=== PATIENT | male | born 1990 | race Caucasian/White ===

== ENCOUNTER 2017-11-04 17:35 | Emergency (ER) | payer SELFPAY ==
--- NOTE | 2017-11-04 17:48 | EDM.PDOC ---
ED HPI GENERAL MEDICAL PROBLEM - General Chief Complaint: ENT Problem Stated Complaint: SORE THROAT Time Seen by Provider: 11/04/17 17:36 Source of Information: Reports: Patient History Limitations: Reports: No Limitations - History of Present Illness INITIAL COMMENTS - FREE TEXT/NARRATIVE: History of present illness: []Patient's had 3 days of a fever and sore throat that is severe and feels like strep. States he has pain with swallowing but is able to tolerate fluids. Being short of breath or having a cough. Patient has had strep Review of systems: As per history of present illness and below otherwise all systems reviewed and negative. Past medical history: As per history of present illness and as reviewed below otherwise noncontributory. Surgical history: As per history of present illness and as reviewed below otherwise noncontributory. Social history: No reported history of drug or alcohol abuse. Family history: As per history of present illness and as reviewed below otherwise noncontributory. Physical exam: General: Well developed, well nourished in NAD HEENT: Atraumatic, normocephalic, pupils reactive, negative for conjunctival pallor or scleral icterus, mucous membranes moist, posterior pharynx erythematous with swelling and large white plaques, neck supple, nontender, trachea midline. No stridor Lungs: Clear to auscultation, breath sounds equal bilaterally, chest nontender. Heart: S1S2, regular, negative for clicks, rubs, or JVD. Abdomen: Soft, nondistended, nontender. Negative for masses or hepatosplenomegaly. Negative for costovertebral tenderness. Pelvis: Stable nontender. Genitourinary: Deferred. Rectal: Deferred. Extremities: Atraumatic, negative for cords or calf pain. Neurovascular unremarkable. Neuro: Awake, alert, oriented. Cranial nerves II through XII unremarkable. Cerebellum unremarkable. Motor and sensory unremarkable throughout. Exam nonfocal. Diagnostics: []Rapid strep negative, mono negative Therapeutics: []Toradol IM, Decadron by mouth Impression: []Acute exudative pharyngitis Plan: []Ibuprofen, Tylenol increase fluids follow-up with primary care. Patient was informed that his strep screen will be cultured and results will be given in 48 hours we will call him if it is positive. Definitive disposition and diagnosis as appropriate pending reevaluation and review of above. Throat Pain Score (Numeric/FACES): 7 - Related Data Allergies Allergy/AdvReac Type Severity Reaction Status Date / Time No Known Allergies Allergy Verified 11/04/17 17:56 Home Meds: Home Meds . [No Known Home Meds] 11/04/17 [History] ED ROS ENT - Review of Systems Review Of Systems: See Below (See history of present illness) ED EXAM, ENT - Physical Exam Exam: See Below (See history of present illness) Course - Vital Signs Last Recorded V/S: Last Vital Signs Temp 99.3 F 11/04/17 17:54 Pulse 88 11/04/17 18:52 Resp 16 11/04/17 18:52 BP 107/65 11/04/17 18:52 Pulse Ox 98 11/04/17 18:52 - Orders/Labs/Meds Orders: Active Orders 24 hr Category Date Time Status CULTURE STREP A CONFIRMATION [] Stat Lab 11/04/17 17:48 Results STREP SCRN A RAPID W CULT CONF [] Stat Lab 11/04/17 17:48 Ordered Labs: Laboratory Tests 11/04/17 Range/Units 18:11 Monoscreen NEGATIVE (NEG) Meds: Medications Discontinued Medications Generic Name Dose Route Start Last Admin Trade Name Rose PRN Reason Stop Dose Admin Dexamethasone 10 mg 11/04/17 17:53 11/04/17 18:03 Dexamethasone PO 11/04/17 17:54 10 mg ONETIME ONE Administration Ketorolac Tromethamine 60 mg 11/04/17 17:50 11/04/17 18:03 Toradol IM 11/04/17 17:51 60 mg ONETIME ONE Administration Departure - Departure Time of Disposition: 18:03 Disposition: Home, Self-Care 01 Condition: Good Clinical Impression: Acute pharyngitis Qualifiers: Pharyngitis/tonsillitis etiology: unspecified etiology Qualified Code(s): J02.9 - Acute pharyngitis, unspecified - Discharge Information Instructions: Pharyngitis, Sore Throat, [id number] Referrals: PCP,None [Primary Care Provider] - Forms: ED Department Discharge Additional Instructions: The following information is given to patients seen in the emergency department who are being discharged to home. This information is to outline your options for follow-up care. We provide all patients seen in our emergency department with a follow-up referral. The need for follow-up, as well as the timing and circumstances, are variable depending upon the specifics of your emergency department visit. If you don't have a primary care physician on staff, we will provide you with a referral. We always advise you to contact your personal physician following an emergency department visit to inform them of the circumstance of the visit and for follow-up with them and/or the need for any referrals to a consulting specialist. The emergency department will also refer you to a specialist when appropriate. This referral assures that you have the opportunity for follow-up care with a specialist. All of these measure are taken in an effort to provide you with optimal care, which includes your follow-up. Under all circumstances we always encourage you to contact your private physician who remains a resource for coordinating your care. When calling for follow-up care, please make the office aware that this follow-up is from your recent emergency room visit. If for any reason you are refused follow-up, please contact the [facility] Emergency Department at and asked to speak to the emergency department charge nurse. Ibuprofen and Tylenol for pain follow-up with primary care return if symptoms worsen or change [facility] [place] [id number] - My Orders Last 24 Hours: My Active Orders 11/04/17 17:48 CULTURE STREP A CONFIRMATION [RM] Stat STREP SCRN A RAPID W CULT CONF [RM] Stat - Assessment/Plan Last 24 Hours: My Active Orders 11/04/17 17:48 CULTURE STREP A CONFIRMATION [RM] Stat STREP SCRN A RAPID W CULT CONF [RM] Stat
[2017-11-04] MEDS ORDERED: Ketorolac 60 MG/2 ML SDV IM ONE (17:50)
[2017-11-04] MEDS ORDERED: Dexamethasone 4 MG Tab PO ONE (17:53)
== END 2017-11-04 18:54 | disposition home or self-care (01) ==
LOC: MW.ED 17:35
DX: J02.9 Acute pharyngitis, unspecified (principal)
CPT/HCPCS: 36415; 86308; 87081; 87880; 96372; 99283; J1885; J8540